=== PATIENT | male | born 1960 | race Caucasian/White ===

== ENCOUNTER 2017-10-12 10:04 | Emergency (ER) | payer OTHER, MEDICARE ==
[~2017-10-12] VITALS: Ht 172.7 cm; Wt 52.2 kg
[~2017-10-12 10:04] MED LIST: ADVAIR DISKUS1 UNIT INH; ALPRAZOLAM1 MG PO; ATIVAN2 MG PO; B12 1MG PE1000 MCG/M IM; CARVEDILOL6.25 MG PO; DILAUDID8 MG PO; MULTIVITAMIN1 TAB PO; NATURAL IRON65 MG PO; NORCO 325 MG-101 TAB PO; PERCOCET 325 MG1 TAB PO; PREDNISONE 20MG20 MG PO; TRAMADOL50 MG PO; ZOFRAN 4 MG TABL4 MG PO; ZOFRAN ODT8 MG PO
--- NOTE | 2017-10-12 11:24 | ED CARDIAC/CP/PALPITATIONS ---
History of Present Illness General Chief Complaint: Chest Pain Stated Complaint: N+V/ CP Source: patient Exam Limitations: no limitations Vital Signs & Intake/Output Vital Signs & Intake/Output Vital Signs Date Time Temp Pulse Resp B/P B/P Pulse O2 O2 Flow FiO2 Mean Ox Delivery Rate 10/12 1725 97.9 73 16 112/67 97 Room Air 10/12 1520 110/69 10/12 1404 97.8 68 18 85/53 98 10/12 1141 Room Air 10/12 1023 97.8 70 24 140/93 97 Room Air Allergies Coded Allergies: venlafaxine (Intermediate, HIVES 08/17/15) mirtazapine (Severe, ASLEEP FOR 2 DAYS 08/17/15) Reconcile Medications Carvedilol 6.25 MG TAB 1 TAB PO BID HEART (Reported) Fluticasone-Salmeterol (Advair 500-50 Diskus) 1 UNIT UNIT 1 PUFF INH BID copd Ondansetron (Zofran Odt) 8 MG ODT 1 TAB PO Q8 PRN N/V (Reported) place on top of the tongue where it will dissolve, then swallow Ondansetron HCl (Zofran) 4 MG TABLET 1 TAB PO Q6-8P PRN NAUSEA Oxycodone HCl 10 MG TABLET 1 TAB PO 4XDP PAIN CONTROL (Reported) Promethazine HCl 25 MG TABLET 1 TAB PO Q6P PRN NAUSEA/VOMITING (Reported) Triage Note: 57M WITH CONSTANT TRANSVERSE UMBILICAL AREA PAIN X2-3 DAYS WITH VOMITING AND DRY HEAVING. ALSO REPORTS LEFT SIDED CP NON-RADIATING AND NON-REPRODUCIBLE, FOLLOWED BY DR RAI. HX VIRAL CARDIOMYOPATHY. EKG APPEARS UNCHANGED FROM PREVIOUS. DRY HEAVING IN TRIAGE, MEDICATED WITH ZOFRAN ODT Triage Nurses Notes Reviewed? yes Onset: Gradual Duration: getting worse Timing: recent history Quality/Severity: severe Radiation: no radiation HPI: Patient is a 57-year-old male with a past medical history of remote esophageal cancer with chemotherapy and radiation therapy with esophagectomy , peripheral neuropathy opiate dependency cardiomyopathy anxiety depression who presents emergency room with a gradual onset of generalized abdominal pain persistent nausea and episodes of nonbloody nonbilious emesis last bowel movement was within last 24 hours no diarrhea in nature no blood no melena. Denies any fever chills but does endorse substernal chest pain Patient is in pain management and has been unrelieved with his 10 mg of OxyContin (Mendel Bryson) Past History Travel History Traveled to [place] past 21 day No Medical History Any Pertinent Medical History? see below for history Neurological: NONE EENT: NONE Cardiovascular: CARDIOMYOPATHY Respiratory: MILD EMPHYSEMA ASPIRATION PNEUMONIA Gastrointestinal: colitis, MALABSORBTION SYNDROME Hepatic: NONE Renal: NONE Musculoskeletal: NONE Psychiatric: anxiety, depression Endocrine: NONE Cancer(s): ESOPHOGEAL CA Other Medical Hx: Anemia, chronic pain History of MRSA: No History of VRE: No History of CDIFF: No Surgical History Surgical History: esophageal resection Psychosocial History Who do you live with Spouse Services at Home None What is your primary language Interlingua Tobacco Use: Current Daily Use Daily Tobacco Use Amount/Type: => 5 Cigarettes daily Family History Hx Contributory? No (Mendel Bryson) Review of Systems Review of Systems Constitutional: Reports: no symptoms. EENTM: Reports: no symptoms. Respiratory: Reports: no symptoms. Cardiovascular: Reports: see HPI. GI: Reports: see HPI, abdominal pain. Genitourinary: Reports: no symptoms. Musculoskeletal: Reports: no symptoms. Skin: Reports: no symptoms. Neurological/Psychological: Reports: no symptoms. Hematologic/Endocrine: Reports: no symptoms. Immunologic/Allergic: Reports: no symptoms. All Other Systems: Reviewed and Negative (Mendel Bryson) Physical Exam Physical Exam General Appearance: mild distress, thin Head: atraumatic Eyes: Bilateral: normal appearance. Ears, Nose, Throat: normal ENT inspection Respiratory: normal breath sounds, chest non-tender Cardiovascular: regular rate/rhythm Gastrointestinal: normal bowel sounds, soft, tenderness Extremities: no edema Neurologic/Psych: no motor/sensory deficits, awake Skin: intact, normal color Core Measures ACS in differential dx? Yes CVA/TIA Diagnosis No Sepsis Present: No Sepsis Focused Exam Completed? No (Mendel Bryson) Progress Differential Diagnosis: AMI, aortic dissection, atrial fibrillation, cholecystitis, CHF/pulm edema, costochondritis, hyperkalemia, hypovolemia, hyperthyroid, hyperventilation, intracranial hemorrhage, musculoskeletal pain, myocarditis, pancreatitis, pericarditis, pneumonia, pneumothorax, PSVT, pulmonary embolism, PUD/GERD, PVCs/PACs, respiratory failure, rib fracture, sepsis, unstable angina Plan of Care: Orders Procedure Date/time Status TROPONIN LEVEL 10/12 1530 Complete EKG 10/12 1530 Active D-DIMER 10/12 1135 Complete B-TYPE NATRIURETIC PEP (BNP) 10/12 1135 Complete TROPONIN LEVEL 10/12 1020 Complete LIPASE 10/12 1020 Complete LACTIC ACID 10/12 1020 Complete COMPREHENSIVE METABOLIC PANEL 10/12 1020 Complete CBC WITHOUT DIFFERENTIAL 10/12 102 Complete EKG 10/12 1009 Active Laboratory Tests 10/12/17 1531: Troponin I < 0.01 10/12/17 1320: Lactic Acid Cancelled 10/12/17 1135: Anion Gap 11, Estimated GFR > 60, BUN/Creatinine Ratio 22.9, Glucose 108 H, Lactic Acid 1.6, Calcium 10.0, Total Bilirubin 0.8, AST 13 L, ALT 25, Alkaline Phosphatase 77, Troponin I < 0.01, Bfk-T-Ulcqqhkhiiu Pept 32.4, Total Protein 7.2, Albumin 4.4, Globulin 2.8, Albumin/Globulin Ratio 1.6, Lipase 244, D-Dimer High Sensitivty 346 H, CBC w Diff MAN DIFF ORDERED, RBC 5.47, MCV 90.1, MCH 29.7, MCHC 33.0, RDW 13.9, MPV 7.2 L, Gran % 87.2 H, Lymphocytes % 9.9 L, Monocytes % 2.8, Eosinophils % 0, Basophils % 0.1, Absolute Granulocytes 13.0 H , Absolute Lymphocytes 1.5, Absolute Monocytes 0.4, Absolute Eosinophils 0, Absolute Basophils 0, Platelet Estimate INCREASED, Normocytic RBCs VERIFIED, Normochromic RBCs VERIFIED 10/12/17 1114: Xva-U-Cbkukeeesst Pept Cancelled Patient upon initial presentation was noted to be in distress patient was initially given multiple pain medications for symptoms which significantly improved patient's symptoms of pain. Nausea was also relieved with Phenergan and Zofran. Patient was able tolerate by mouth upon discharge I reviewed all blood work and CT scan with patient and which no acute processes noted at this time. Patient was discussed with the internal findings of the renal cyst he was strongly advised to discontinue smoking follow-up with his consumer affairs manager and supervisor blood donor recruiters. On discharge patient looks well no apparent distress and will comply with discharge instructions. Patient had second set EKG and troponin that were unremarkable. Diagnostic Imaging: Viewed by Me: CT Scan. Radiology Impression: SEE COMMENTS Initial ED EKG: normal p-waves, normal QRS complex, normal sinus rhythm, 74 BPM, NSR Comments: PATIENT: YONATAN MENDOZA PRESENT AGE: 57 PATIENT ACCOUNT NO: [id number] : 62 LOCATION: [facility] ORDERING PHYSICIAN: Mendel OCONNOR SERVICE DATE: 10/12/17 EXAM TYPE: CAT - CT ABD & PELVIS W IV CONTRAST; CTA CHEST-PULMONARY EMBOLISM EXAMINATION: CT CHEST PE STUDY CT ABDOMEN AND PELVIS WITH CONTRAST CLINICAL INFORMATION: No score greater than 4 and positive d-dimer. Chest pain. History of esophagectomy. Abdominal pain. COMPARISON: CT scan of the abdomen and pelvis dated 11/15/2012 and 01/01/2012. CT scan of the chest dated 01/01/2012. TECHNIQUE: Prior to contrast administration, localization images were obtained. After the administration of 95 mL of intravenous Optiray 320, multidetector CT volume acquisition of the chest was performed. 3-D postprocessing was performed with multiplanar reconstructions and MIP images obtained at the acquisition workstation under concurrent physician supervision. Multidetector CT helical images of the abdomen and pelvis were performed following the administration of 95 mL of intravenous Optiray 320. The data set was reformatted in the coronal and sagittal planes and reviewed on an independent workstation. DLP: 392.40 mGy-cm. FINDINGS: CHEST: Pulmonary arteries: The bolus timing on this study was acceptable for visualization of the pulmonary arterial tree. There are no intraluminal pulmonary arterial filling defects present to suggest pulmonary embolism in the main pulmonary artery, right and left main pulmonary artery, lobar and segmental branches. LUNGS: Biapical pleural-based reticular nodular opacities with associated mild traction bronchiectasis are seen, more pronounced in the right lung apex than the left and progressive when compared to 01/01/2012. Moderate centrilobular and paraseptal emphysema seen. Patchy areas of atelectasis noted in both lower lobes, right middle lobe and lingula. Airways diffusely thickened and mildly bronchiectatic. No significant pulmonary nodule or mass is seen. No effusion or pneumothorax is seen. LYMPHOVASCULAR STRUCTURES: Aortic and heart size are normal. No pericardial effusion is seen. There is prominent reflux of contrast seen within the intrahepatic veins, possibly due to force of injection. No other evidence of elevated right heart pressures is seen. The interventricular septum is midline in position. No abnormal dilatation of the right ventricle is seen. Again seen are multiple borderline abnormal sized mediastinal lymph nodes, measuring up to 1.4 cm in short axis and located in the aortopulmonary window, subcarinal space, and bilateral debbie, unchanged compared to 01/01/2012. The patient is status post esophagectomy and gastric pull-through procedure. THYROID GLAND: Obscured by beam hardening artifact. BONES: Mild to moderate multilevel vertebral spondylosis. No suspicious focal finding. ABDOMEN AND PELVIS: LIVER, GALLBLADDER, BILIARY TREE: Liver normal size and attenuation. No focal cystic or solid mass or intra-or extrahepatic ductal dilatation. Hepatic and portal veins patent. The gallbladder partially distended and within normal limits. PANCREAS: Normal. No ductal dilatation, mass, or surrounding stranding. SPLEEN: Normal size and appearance. Splenic vein patent. ADRENAL GLANDS AND KIDNEYS: Adrenal glands normal. Kidneys bilaterally symmetric in size and function. There there are multiple bilateral variably sized low-attenuation masses seen in the kidneys, only the largest of which are confidently characterized as simple cystic. The smaller cystic masses are suboptimally assessed due to volume averaging with adjacent parenchyma and are difficult to compare to the prior noncontrast CT scans, but likely represent cysts. No hydronephrosis, nephrolithiasis or perinephric stranding. URETERS AND BLADDER: Ureters decompressed and within normal limits. Bladder partially distended and within normal limits. PELVIC VISCERA: The patient appears to be status post hysterectomy. Ovaries bilaterally are not visualized. No suspicious adnexal mass. BOWEL LOOPS: Moderate colonic diverticulosis with no evidence of acute diverticulitis. Small and large bowel loops decompressed. Appendix not seen. ABDOMINAL WALL: Unremarkable. LYMPHOVASCULAR STRUCTURES: Abdominal aorta normal in caliber. Moderate abdominal aortic calcifications. No periaortic collections. No abdominal or pelvic adenopathy or free fluid collection. BONES: Severe degenerative disc disease in lower thoracic spine with fusion of the T11-T12 vertebral bodies seen. No suspicious bone findings. IMPRESSION: 1. No evidence of pulmonary embolism. 2. Moderate emphysema with no suspicious pulmonary nodule or mass seen. 3. Asymmetric region of right apical presumed scarring, progressive compared to prior study from 2012. Consider follow-up assessment in 3 months to exclude underlying neoplastic etiology. 4. Multiple bilateral renal masses, likely representing cysts. DICTATED BY: Angelica CORLEY,Patricia Gallardo. DATE/TIME DICTATED:10/12/171333 MOLDER TRIMMER:MADDIE DATE/TIME TRANSCRIBED:10/12/171333 (Mendel Bryson) Departure Departure Disposition: HOME OR SELF CARE Condition: Stable Clinical Impression Primary Impression: Abdominal pain Secondary Impressions: Chest pain, Nausea, Renal cyst Referrals: Judy CORLEY,Madhav Ortiz (PCP/Family) Additional Instructions: As discussed please follow-up with your established consumer affairs manager and your supervisor blood donor recruiters on Saturday for further evaluation treatment, continue home medications especially your previously prescribed pain medication, begin the prescription of Zofran for nausea and your previously prescribed Phenergan for your symptoms, if symptoms worsen return to emergency room Departure Forms: Customer Survey General Discharge Information Prescriptions: Current Visit Scripts Ondansetron HCl (Zofran) 1 TAB PO Q6-8P PRN NAUSEA #10 TAB (Mendel Bryson) PA/REGIONAL CLIMATE CHANGE ANALYST Co-Sign Statement Statement: ED Attending supervision documentation- x I saw and evaluated the patient. I have also reviewed all the pertinent lab results and diagnostic results. I agree with the findings and the plan of care as documented in the PA's/REGIONAL CLIMATE CHANGE ANALYST's documentation. [] I have reviewed the ED Record and agree with the PA's/REGIONAL CLIMATE CHANGE ANALYST's documentation. [] Additions or exceptions (if any) to the PAs/REGIONAL CLIMATE CHANGE ANALYST's note and plan are summarized below: [] (Sonido CORLEY,Tawanda) Critical Care Note Critical Care Note Critical Care Time: non-applicable (Mendel Bryson)
[2017-10-12 11:46] LABS: ABSOLUTE BASOPHIL COUNT 0 /CUMM (0.0-0.2); ABSOLUTE EOSINOPHIL COUNT 0 /CUMM (0.0-0.7); ABSOLUTE LYMPH COUNT 1.5 /CUMM (1.2-3.4); ABSOLUTE MONOCYTE COUNT 0.4 /CUMM (0.10-0.60); BASOPHIL % 0.1 % (0.0-2.0); EOSINOPHIL % 0 % (0-5); GRANULOCYTE % 87.2 % (42.2-75.2); HEMATOCRIT 49.2 % (42-52); MEAN CORPUSCULAR HGB 29.7 PG (27.0-31.0); MEAN CORPUSCULAR VOLUME 90.1 FL (80.0-94.0); MEAN PLATELET VOLUME 7.2 FL (7.4-10.4); PLATELET COUNT 549 /CUMM (130-400); RBC DISTRIBUTION WIDTH 13.9 % (11.5-14.5); RED BLOOD CELL CT 5.47 /CUMM (4.70-6.10); WHITE BLOOD CELL COUNT 14.9 /CUMM (4.8-10.8)
[2017-10-12] MEDS ORDERED: OXYCODONE HCL10 M2 PO (11:57)
[2017-10-12] MEDS ORDERED: PROMETHAZINE HC25 M3 PO (11:57)
--- NOTE | 2017-10-12 14:24 | CT SCAN REPORT ---
EXAMINATION: CT CHEST PE STUDY CT ABDOMEN AND PELVIS WITH CONTRAST CLINICAL INFORMATION: No score greater than 4 and positive d-dimer. Chest pain. History of esophagectomy. Abdominal pain. COMPARISON: CT scan of the abdomen and pelvis dated 11/15/2012 and 01/01/2012. CT scan of the chest dated 01/01/2012. TECHNIQUE: Prior to contrast administration, localization images were obtained. After the administration of 95 mL of intravenous Optiray 320, multidetector CT volume acquisition of the chest was performed. 3-D postprocessing was performed with multiplanar reconstructions and MIP images obtained at the acquisition workstation under concurrent physician supervision. Multidetector CT helical images of the abdomen and pelvis were performed following the administration of 95 mL of intravenous Optiray 320. The data set was reformatted in the coronal and sagittal planes and reviewed on an independent workstation. DLP: 392.40 mGy-cm. FINDINGS: CHEST: Pulmonary arteries: The bolus timing on this study was acceptable for visualization of the pulmonary arterial tree. There are no intraluminal pulmonary arterial filling defects present to suggest pulmonary embolism in the main pulmonary artery, right and left main pulmonary artery, lobar and segmental branches. LUNGS: Biapical pleural-based reticular nodular opacities with associated mild traction bronchiectasis are seen, more pronounced in the right lung apex than the left and progressive when compared to 01/01/2012. Moderate centrilobular and paraseptal emphysema seen. Patchy areas of atelectasis noted in both lower lobes, right middle lobe and lingula. Airways diffusely thickened and mildly bronchiectatic. No significant pulmonary nodule or mass is seen. No effusion or pneumothorax is seen. LYMPHOVASCULAR STRUCTURES: Aortic and heart size are normal. No pericardial effusion is seen. There is prominent reflux of contrast seen within the intrahepatic veins, possibly due to force of injection. No other evidence of elevated right heart pressures is seen. The interventricular septum is midline in position. No abnormal dilatation of the right ventricle is seen. Again seen are multiple borderline abnormal sized mediastinal lymph nodes, measuring up to 1.4 cm in short axis and located in the aortopulmonary window, subcarinal space, and bilateral debbie, unchanged compared to 01/01/2012. The patient is status post esophagectomy and gastric pull-through procedure. THYROID GLAND: Obscured by beam hardening artifact. BONES: Mild to moderate multilevel vertebral spondylosis. No suspicious focal finding. ABDOMEN AND PELVIS: LIVER, GALLBLADDER, BILIARY TREE: Liver normal size and attenuation. No focal cystic or solid mass or intra-or extrahepatic ductal dilatation. Hepatic and portal veins patent. The gallbladder partially distended and within normal limits. PANCREAS: Normal. No ductal dilatation, mass, or surrounding stranding. SPLEEN: Normal size and appearance. Splenic vein patent. ADRENAL GLANDS AND KIDNEYS: Adrenal glands normal. Kidneys bilaterally symmetric in size and function. There there are multiple bilateral variably sized low-attenuation masses seen in the kidneys, only the largest of which are confidently characterized as simple cystic. The smaller cystic masses are suboptimally assessed due to volume averaging with adjacent parenchyma and are difficult to compare to the prior noncontrast CT scans, but likely represent cysts. No hydronephrosis, nephrolithiasis or perinephric stranding. URETERS AND BLADDER: Ureters decompressed and within normal limits. Bladder partially distended and within normal limits. PELVIC VISCERA: The patient appears to be status post hysterectomy. Ovaries bilaterally are not visualized. No suspicious adnexal mass. BOWEL LOOPS: Moderate colonic diverticulosis with no evidence of acute diverticulitis. Small and large bowel loops decompressed. Appendix not seen. ABDOMINAL WALL: Unremarkable. LYMPHOVASCULAR STRUCTURES: Abdominal aorta normal in caliber. Moderate abdominal aortic calcifications. No periaortic collections. No abdominal or pelvic adenopathy or free fluid collection. BONES: Severe degenerative disc disease in lower thoracic spine with fusion of the T11-T12 vertebral bodies seen. No suspicious bone findings. IMPRESSION: 1. No evidence of pulmonary embolism. 2. Moderate emphysema with no suspicious pulmonary nodule or mass seen. 3. Asymmetric region of right apical presumed scarring, progressive compared to prior study from 2012. Consider follow-up assessment in 3 months to exclude underlying neoplastic etiology. 4. Multiple bilateral renal masses, likely representing cysts.
[2017-10-12] MEDS ORDERED: ZOFRAN4 M2 PO (16:52)
[2017-10-12 17:25] VITALS: BP 112/67
== END 2017-10-12 17:26 ==
LOC: ERH 10:04
PROVIDERS: Emergency Medicine
DX: N28.1 Cyst of kidney, acquired (principal); R07.89 Other chest pain
CPT/HCPCS: 74177; 93005; 93010; 96374; 96375; 96376; J2550; J3101